=== PATIENT | female | born 1970 | race Caucasian/White ===

== ENCOUNTER → 2020-08-16 | Outpatient (CLI) | payer OTHER | LOC: M.LAB 08:22 | PROVIDERS: ATTEND Orthopaedic Surgery | DX: Z01.812 Encounter for preprocedural laboratory examination (principal); Z20.822 Contact with and (suspected) exposure to COVID-19; M94.261 Chondromalacia, right knee ==

== ENCOUNTER → 2020-08-22 | Day surgery (SDC) | payer OTHER ==
[~2020-08-22] MED LIST: NORCO5 PO
[2020-08-22 09:11] LABS: HEMOGLOBIN 12.9 gm/dL (12.0-15.0)
--- NOTE | 2020-08-23 12:48 | OP ---
[address] [address] OPERATIVE REPORT Name: ANITA SOLIZ Room: [facility]#: [id number] Admission: 08/22/20 Attend Phys: Juanojse Osorio II Discharge: Date of : 72 Report #: [id number] THIS REPORT FOR: cc: CÉSAR SUAZO MSN RN HOSE INSPECTOR CÉSAR SUAZO MSN RN HOSE INSPECTOR ~ Juanjose Osorio II, DO DATE OF SERVICE: 08/22/2020 PREOPERATIVE DIAGNOSES: 1. Right knee loose body. 2. Chondromalacia patellofemoral groove. 3. Lateral tracking patella. POSTOPERATIVE DIAGNOSES: 1. Right knee loose body. 2. Chondromalacia patellofemoral groove. 3. Lateral tracking patella. PROCEDURES PERFORMED: 1. Right knee arthroscopic surgery with lateral release. 2. Abrasion chondroplasty, patellofemoral groove down to bleeding bone. 3. Excision loose body x 1, measuring approximately 1 cm. SURGEON: Juanjose Osorio II, DO BILLET DRILLER: WILLIAM Cornejo ANESTHESIA: Per operative record. ESTIMATED BLOOD LOSS: Minimal. ANTIBIOTICS: Per operative record. DRAINS: None. COMPLICATIONS: None. CONDITION OF THE PATIENT: Stable to recovery room. DESCRIPTION OF PROCEDURE: The patient was taken to the operative suite and placed supine on the operating table, given appropriate anesthesia. The patient's affected lower extremity sterilely prepped and draped with a well-padded knee arthroscopic boyle. Surgery began by medial and lateral portal incisions. The arthroscope was advanced in the joint. There was actually grade 3 chondromalacia within the patellofemoral groove. Utilizing a [address] [address] OPERATIVE REPORT Name: ANITA SOLIZ Room: [facility].#: [id number] Admission: 08/22/20 Attend Phys: Juanjose Osorio II Discharge: Date of : 72 Report #: [id number] shaver, an abrasion chondroplasty was performed to bleeding bone and then smoothed using a Coblation wand. The medial and lateral meniscus were probed and shown to be intact. ACL and PCL were intact. The patella was shown to have lateral tracking and fixed lateral tilt and translation. Utilizing a cautery wand, a lateral release was performed along the lateral patellar retinaculum. This was shown to have improved alignment, decreased patellar tilt and translation. There was shown to be approximately 1 cm loose body, which was removed from the mid portion of the joint through the medial portal with graspers. Shaver were utilized to remove excess bone and cartilage debris. The knee was drained of arthroscopic fluid, closed with 4-0 nylon in simple fashion. Dermabond and sterile dressing applied. The patient transported to recovery room in stable condition. Counts were correct throughout the procedure. <ELECTRONICALLY SIGNED> By: Juanjose Osorio II, DO 08/23/20 1248 02 Blaise Osorio II, DO /nt
== END | disposition home or self-care (01) ==
LOC: M.SUR 08:34
PROVIDERS: ATTEND Orthopaedic Surgery
DX: M23.41 Loose body in knee, right knee (principal); M22.41 Chondromalacia patellae, right knee; M22.2X1 Patellofemoral disorders, right knee; I10 Essential (primary) hypertension; E03.9 Hypothyroidism, unspecified; K21.9 Gastro-esophageal reflux disease without esophagitis; Z98.890 Other specified postprocedural states; Z79.899 Other long term (current) drug therapy; Z91.040 Latex allergy status